=== PATIENT | male | born 1955 | race Caucasian/White ===

== ENCOUNTER → 2016-06-26 | Outpatient (CLI) | payer MEDICAID, OTHER ==
[2016-06-26 09:20] LABS: Basophils # (A) 0.1 k/uL (0-0.2); Basophils % (A) 1 %; CH 31.8; CHCM 34.2; Eosinophils # (A) 0.3 k/uL (0-0.7); Eosinophils % (A) 4 %; HCT 46.8 % (39.0-53.0); HDW 2.49; HGB 15.6 gm/dL (13.0-17.5); Luc # (Auto) 0.22; Luc % (Auto) 3; Lymphocytes # (A) 1.6 k/uL (1.0-4.8); Lymphocytes % (A) 24 %; MCH 31.1 pg (25.0-35.0); MCHC 33.3 g/dL (31.0-37.0); MCV 93.4 fL (80.0-100.0); Mean Platelet Volume 6.2; Monocytes # (A) 0.4 k/uL (0-1.0); Monocytes % (A) 6 %; Neutrophils # (A) 4.1 k/uL (1.3-7.7); Neutrophils % (A) 61 %; RBC 5.01 m/uL (4.30-5.90); RDW 12.2 % (11.5-15.5); WBC 6.6 k/uL (3.8-10.6); WBC (Perox) 6.97
[2016-06-26 13:00] LABS: ALT 49 U/L (21-72); AST 26 U/L (17-59); Alkaline Phosphatase 97 U/L (38-126); Anion Gap 11 mmol/L; Blood Urea Nitrogen 10 mg/dL (9-20); Calcium 9.8 mg/dL (8.4-10.2); Carbon Dioxide 30 mmol/L (22-30); Chloride 99 mmol/L (98-107); Cholesterol 209 mg/dL (<200); Glucose 115 mg/dL (74-99); HDL Cholesterol 40 mg/dL (40-60); Non-African American GFR(MDRD) >60 (>60 ml/min/1.73 sqM); Potassium 4.8 mmol/L (3.5-5.1); Sodium 140 mmol/L (137-145); Total Protein 7.9 g/dL (6.3-8.2); Triglycerides 419 mg/dL (<150)
[2016-06-26 13:25] LABS: Prostate Specific Antigen 0.65 ng/mL (0.00-4.00)
== END | disposition home or self-care (01) ==
LOC: LABWHC1 08:38
PROVIDERS: ATTEND Family Medicine
DX: Z00.01 Encounter for general adult medical examination with abnormal findings (principal); N40.0 Benign prostatic hyperplasia without lower urinary tract symptoms; N52.9 Male erectile dysfunction, unspecified; E78.2 Mixed hyperlipidemia; I10 Essential (primary) hypertension
CPT/HCPCS: 36415; 80053; 80061; 84153; 85025

== ENCOUNTER → 2016-12-12 | Outpatient (CLI) | payer MEDICAID, OTHER ==
[2016-12-12 10:15] LABS: ALT 39 U/L (21-72); AST 22 U/L (17-59); Alkaline Phosphatase 86 U/L (38-126); Anion Gap 10 mmol/L; Blood Urea Nitrogen 13 mg/dL (9-20); Calcium 9.8 mg/dL (8.4-10.2); Carbon Dioxide 29 mmol/L (22-30); Chloride 99 mmol/L (98-107); Cholesterol 189 mg/dL (<200); Glucose 107 mg/dL (74-99); HDL Cholesterol 42 mg/dL (40-60); Non-African American GFR(MDRD) >60 (>60 ml/min/1.73 sqM); Sodium 138 mmol/L (137-145); Total Protein 7.8 g/dL (6.3-8.2); Triglycerides 259 mg/dL (<150)
== END | disposition home or self-care (01) ==
LOC: LABWHC1 09:23
PROVIDERS: ATTEND Family Medicine
DX: E78.2 Mixed hyperlipidemia (principal); I10 Essential (primary) hypertension
CPT/HCPCS: 36415; 80053; 80061

== ENCOUNTER → 2016-12-18 | Outpatient (CLI) | payer MEDICAID, OTHER ==
--- NOTE | 2016-12-18 12:54 | P.STRESS ---
- Stress Test Note Stress Test Results/Findings: Exam Performed: stress test Exam Date: 12/18/16 Reason for Exam: Chest pain Height: 5 ft 11 in Weight: 95.254 kg Protocol: Rylan Stage: 3 Duration of Exercise: 10:02 Resting Heart Rate: 68 Resting Blood Pressure: 131/79 Maximum Achieved Heart Rate: 153 Maximum Achieved Blood Pressure: 175/79 85% PMHR: 133 100% PMHR: 157 METS: 11.7 Technologist Comment: Stress Test Results/Findings: Resting EKG shows a normal sinus rhythm with normal ND interval and QRS duration and normal ST-T waves. No ST segment depression suggestive ischemia is noted during exercise. Patient did not complain of any chest pain during the test. No dysrhythmias are noted. Final impression stress electrocardiogram is not suggestive ischemia. Patient did not complain of any anginal pain during the test. No dysrhythmias were noted.
--- NOTE | 2016-12-18 16:49 | EST ---
Stress Test Results/Findings: Exam Performed: stress test Exam Date: 12/18/16 Reason for Exam: Chest pain Height: 5 ft 11 in Weight: 95.254 kg Protocol: Rylan Stage: 3 Duration of Exercise: 10:02 Resting Heart Rate: 68 Resting Blood Pressure: 131/79 Maximum Achieved Heart Rate: 153 Maximum Achieved Blood Pressure: 175/79 85% PMHR: 133 100% PMHR: 157 METS: 11.7 Technologist Comment: Stress Test Results/Findings: Resting EKG shows a normal sinus rhythm with normal MD interval and QRS duration and normal ST-T waves. No ST segment depression suggestive ischemia is noted during exercise. Patient did not complain of any chest pain during the test. No dysrhythmias are noted. Final impression stress electrocardiogram is not suggestive ischemia. Patient did not complain of any anginal pain during the test. No dysrhythmias were noted. MTDD
== END | disposition home or self-care (01) ==
LOC: RADNMMAIN 10:49
PROVIDERS: ATTEND Family Medicine
DX: R07.9 Chest pain, unspecified (principal)
CPT/HCPCS: 93017

== ENCOUNTER → 2017-03-30 | Outpatient (CLI) | payer MEDICAID, OTHER ==
[2017-03-30 15:48] LABS: Basophils % (A) 1 %; CH 31.6; CHCM 33.6; Eosinophils % (A) 0 %; HCT 44.3 % (39.0-53.0); HDW 2.23; HGB 14.6 gm/dL (13.0-17.5); Luc # (Auto) 0.11; Luc % (Auto) 2; Lymphocytes # (A) 0.7 k/uL (1.0-4.8); Lymphocytes % (A) 11 %; MCHC 32.9 g/dL (31.0-37.0); MCV 94.4 fL (80.0-100.0); Mean Platelet Volume 7.1; Monocytes # (A) 0.6 k/uL (0-1.0); Monocytes % (A) 9 %; Neutrophils # (A) 4.9 k/uL (1.3-7.7); Neutrophils % (A) 78 %; RBC 4.69 m/uL (4.30-5.90); RDW 13.7 % (11.5-15.5); WBC 6.4 k/uL (3.8-10.6); WBC (Perox) 6.39
--- NOTE | 2017-03-30 15:51 | XR ---
EXAMINATION TYPE: XR chest 2V DATE OF EXAM: 03/30/2017 COMPARISON: 09/23/2011 TECHNIQUE: PA and lateral views submitted. HISTORY: Cough FINDINGS: The lungs are clear and there is no pneumothorax, pleural effusion, or focal pneumonia. Hypertrophi c and degenerative change of the spine. Scoliotic curvature noted. IMPRESSION: 1. No acute process.
[2017-03-30 16:03] LABS: ALT 49 U/L (21-72); AST 26 U/L (17-59); Alkaline Phosphatase 109 U/L (38-126); Anion Gap 11 mmol/L; Blood Urea Nitrogen 11 mg/dL (9-20); Calcium 9.5 mg/dL (8.4-10.2); Carbon Dioxide 26 mmol/L (22-30); Chloride 89 mmol/L (98-107); Glucose 137 mg/dL (74-99); Non-African American GFR(MDRD) >60 (>60 ml/min/1.73 sqM); Potassium 4.7 mmol/L (3.5-5.1); Sodium 126 mmol/L (137-145); Total Bilirubin 1.1 mg/dL (0.2-1.3); Total Protein 7.5 g/dL (6.3-8.2)
[2017-03-30 16:59] LABS: Appearance,Urine Clear (Clear); Bilirubin,Urine Negative (Negative); Glucose,Urine (UA) Negative (Negative); Ketones,Urine 1+ (Negative); Leukocyte Esterase,Urine Negative (Negative); Nitrite,Urine Negative (Negative); PH, Urine 6.5 (5.0-8.0); Protein,Urine Trace (Negative); UA Billing (MACRO vs. MICRO) CHEM; Urobilinogen,Urine <2.0 mg/dL (<2.0)
== END | disposition home or self-care (01) ==
LOC: RADXRMAIN 14:52
PROVIDERS: ATTEND Physician Assistant
DX: R05 Cough (principal); R68.83 Chills (without fever); R11.0 Nausea
CPT/HCPCS: 36415; 71020; 80053; 81003; 85025; 87086

== ENCOUNTER → 2017-04-01 | Outpatient (CLI) | payer OTHER, MEDICAID ==
[2017-04-01 14:28] LABS: ALT 52 U/L (21-72); AST 34 U/L (17-59); Alkaline Phosphatase 89 U/L (38-126); Anion Gap 11 mmol/L; Blood Urea Nitrogen 17 mg/dL (9-20); Calcium 8.8 mg/dL (8.4-10.2); Carbon Dioxide 23 mmol/L (22-30); Chloride 96 mmol/L (98-107); Glucose 91 mg/dL (74-99); Non-African American GFR(MDRD) >60 (>60 ml/min/1.73 sqM); Sodium 130 mmol/L (137-145); Total Bilirubin 0.9 mg/dL (0.2-1.3); Total Protein 7.5 g/dL (6.3-8.2)
== END | disposition home or self-care (01) ==
LOC: LABWHC1 13:26
PROVIDERS: ATTEND Physician Assistant
DX: E87.1 Hypo-osmolality and hyponatremia (principal)
CPT/HCPCS: 36415; 80053

== ENCOUNTER → 2017-06-25 | Outpatient (CLI) | payer OTHER, MEDICAID ==
[2017-06-25 11:06] LABS: Basophils # (A) 0.1 k/uL (0-0.2); Basophils % (A) 1 %; Eosinophils # (A) 0.2 k/uL (0-0.7); Eosinophils % (A) 4 %; HCT 45.2 % (39.0-53.0); HGB 15.4 gm/dL (13.0-17.5); Lymphocytes # (A) 1.6 k/uL (1.0-4.8); Lymphocytes % (A) 24 %; MCH 31.3 pg (25.0-35.0); MCV 92.2 fL (80.0-100.0); Mean Platelet Volume 6.5; Monocytes # (A) 0.4 k/uL (0-1.0); Monocytes % (A) 6 %; Neutrophils # (A) 4.1 k/uL (1.3-7.7); Neutrophils % (A) 62 %; Platelet Count 322 k/uL (150-450); RDW 12.2 % (11.5-15.5); WBC 6.7 k/uL (3.8-10.6)
[2017-06-25 11:16] LABS: ALT 40 U/L (21-72); AST 23 U/L (17-59); Albumin 4.6 g/dL (3.5-5.0); Alkaline Phosphatase 84 U/L (38-126); Anion Gap 9 mmol/L; Blood Urea Nitrogen 14 mg/dL (9-20); Calcium 9.7 mg/dL (8.4-10.2); Carbon Dioxide 31 mmol/L (22-30); Chloride 98 mmol/L (98-107); Cholesterol 190 mg/dL (<200); Glucose 116 mg/dL (74-99); HDL Cholesterol 45 mg/dL (40-60); LDL Cholesterol,Calculated 109 mg/dL (0-99); Potassium 4.8 mmol/L (3.5-5.1); Sodium 138 mmol/L (137-145); Total Bilirubin 0.7 mg/dL (0.2-1.3); Total Protein 7.6 g/dL (6.3-8.2); Triglycerides 181 mg/dL (<150)
[2017-06-25 11:41] LABS: PSA Annual Screen 0.69 ng/mL (0.00-4.00)
== END | disposition home or self-care (01) ==
LOC: LABWHC1 10:21
PROVIDERS: ATTEND Family Medicine
DX: Z00.01 Encounter for general adult medical examination with abnormal findings (principal); N40.0 Benign prostatic hyperplasia without lower urinary tract symptoms; E78.2 Mixed hyperlipidemia; I10 Essential (primary) hypertension
CPT/HCPCS: 80061; 80053; 85025; 36415; G0103

== ENCOUNTER 2017-07-02 09:25 | Day surgery (SDC) | payer OTHER, MEDICAID ==
[2017-06-30 11:58] VITALS: BMI 29.9
[~2017-07-02 09:25] MED LIST: LACTATED RINGERS 1,000 ML IV SCH; LIDOCAINE 1% 20 ML VIAL (10MG/ML) FOR IV START INTRADERMA PRN
[2017-07-02 10:05] VITALS: TEMP 97.8
[2017-07-02] MEDS ORDERED: GLYCOPYRROLATE 0.2 MG/ML 2 ML VIAL ONE (10:59)
[2017-07-02] MEDS ORDERED: PROPOFOL 10 MG/ML 20 ML VIAL IV ONE (10:59)
[2017-07-02] MEDS ORDERED: LIDOCAINE 1% INJ 10MG/ML (20 ML MDV) ONE (10:59)
[2017-07-02 11:35] VITALS: RESP 18
--- NOTE | 2017-07-02 11:42 | P.PCN ---
Date of Procedure: 07/02/17 Procedure(s) Performed: Procedure: Colonoscopy and polypectomy. Preoperative diagnosis: Screening for neoplasia, patient has history of polyps. Postoperative diagnosis: 1. Small right colon polyp snared but no large polyps or cancer. 2. Diverticulosis with no evidence of acute diverticulitis or strictures. Preparation: HalfLytely prep. Sedation: Was provided by anesthesia. Brief clinical history: The patient is a 61-year-old male who is scheduled for this evaluation for screening for neoplasia age being his risk factor as well as history of polyps. His last colonoscopy was in February 2012. The patient has no abdominal complaints, bleeding or anemia. Procedure: With the patient on his left lateral decubitus position and after informed consent and adequate sedation, the perianal area was inspected and it did not show any fissures or fistulas. There were no masses felt on digital rectal examination. The Olympus CFQ 160L video colonoscope was then inserted in the rectum in the usual fashion and advanced to the cecum. There were several diverticular orifices seen scattered along the length of the bowel wall including the right side but there was no evidence of acute diverticulitis or strictures. There was a small polyp in the proximal sigmoid which I snared and retrieved by suction but there were no large polyps or cancer. The mucosa appeared healthy. I retroflexed the endoscope in the rectum before the endoscope was withdrawn. The patient tolerated the procedure well. Plan: The patient was reassured. Discussed dietary measures. He will follow up with you as planned and I recommended repeat exam in 5 years.
[2017-07-02 11:50] VITALS: BP 120/80; PULSE 72
== END 2017-07-02 12:07 | disposition home or self-care (01) ==
LOC: ORWHC2ENDO 09:25
DX: Z12.11 Encounter for screening for malignant neoplasm of colon (principal); K63.5 Polyp of colon; Z86.010 Personal history of colon polyps; K57.30 Diverticulosis of large intestine without perforation or abscess without bleeding; I10 Essential (primary) hypertension; E78.5 Hyperlipidemia, unspecified; Z79.82 Long term (current) use of aspirin; Z79.899 Other long term (current) drug therapy
CPT/HCPCS: 88305; 45385; J2001; J2704

== ENCOUNTER → 2017-12-24 | Outpatient (CLI) | payer OTHER, MEDICAID ==
[2017-12-24 11:33] LABS: Anion Gap 6 mmol/L; Blood Urea Nitrogen 10 mg/dL (9-20); Calcium 9.7 mg/dL (8.4-10.2); Carbon Dioxide 30 mmol/L (22-30); Chloride 101 mmol/L (98-107); Glucose 109 mg/dL (74-99); Potassium 5.3 mmol/L (3.5-5.1); Sodium 137 mmol/L (137-145)
== END | disposition home or self-care (01) ==
LOC: LABWHC1 10:37
PROVIDERS: ATTEND Family Medicine
DX: I10 Essential (primary) hypertension (principal); R73.9 Hyperglycemia, unspecified
CPT/HCPCS: 36415; 80048

== ENCOUNTER → 2018-06-24 | Outpatient (CLI) | payer OTHER, MEDICAID ==
[2018-06-24 11:09] LABS: Basophils # (A) 0.1 k/uL (0-0.2); Basophils % (A) 1 %; Eosinophils # (A) 0.5 k/uL (0-0.7); Eosinophils % (A) 7 %; HCT 44.3 % (39.0-53.0); HGB 14.5 gm/dL (13.0-17.5); Lymphocytes # (A) 1.8 k/uL (1.0-4.8); Lymphocytes % (A) 26 %; MCH 30.2 pg (25.0-35.0); MCHC 32.8 g/dL (31.0-37.0); MCV 92.2 fL (80.0-100.0); Mean Platelet Volume 6.5; Monocytes # (A) 0.4 k/uL (0-1.0); Monocytes % (A) 6 %; Neutrophils # (A) 3.8 k/uL (1.3-7.7); Neutrophils % (A) 57 %; Platelet Count 304 k/uL (150-450); RBC 4.81 m/uL (4.30-5.90); RDW 12.6 % (11.5-15.5); WBC 6.7 k/uL (3.8-10.6)
[2018-06-24 16:37] LABS: Albumin 4.6 g/dL (3.80-4.90); Albumin/Globulin Ratio 2.09 (1.60-3.17); Anion Gap 8.1 mmol/L (4.00-12.00); Calcium 9.7 mg/dL (8.7-10.3); Carbon Dioxide 26.9 mmol/L (21.6-31.8); Globulin 2.2 g/dL (1.6-3.3); Potassium 4.7 mmol/L (3.5-5.5); Total Bilirubin 1.1 mg/dL (0.3-1.2); Total Protein 6.8 g/dL (6.2-8.2)
[2018-06-24 16:38] LABS: LDL Cholesterol,Calculated 86.8 mg/dL (0.0-131.0); VLDL Calculation 49.2 mg/dL (5.00-40.00)
[2018-06-24 18:38] LABS: Hemoglobin A1C 5.8 % (4.0-6.0)
== END | disposition home or self-care (01) ==
LOC: LABWHC1 10:01
PROVIDERS: ATTEND Family Medicine
DX: Z00.01 Encounter for general adult medical examination with abnormal findings (principal); I10 Essential (primary) hypertension; E78.2 Mixed hyperlipidemia; N40.0 Benign prostatic hyperplasia without lower urinary tract symptoms; R73.09 Other abnormal glucose
CPT/HCPCS: 80061; 80053; 85025; 83036; 36415; G0103

== ENCOUNTER → 2018-12-13 | Outpatient (CLI) | payer MEDICAID, MEDICARE ==
[2018-12-13 17:09] LABS: African American GFR (CKD) 91.1 (60.0-200.0); Albumin 4.8 g/dL (3.80-4.90); Albumin/Globulin Ratio 2.4 (1.60-3.17); Anion Gap 7.9 mmol/L (4.00-12.00); Calcium 9.8 mg/dL (8.7-10.3); Carbon Dioxide 28.1 mmol/L (21.6-31.8); Potassium 5.1 mmol/L (3.5-5.5); Total Protein 6.8 g/dL (6.2-8.2)
== END | disposition home or self-care (01) ==
LOC: LABWHC1 08:59
PROVIDERS: ATTEND Family Medicine
DX: A09 Infectious gastroenteritis and colitis, unspecified (principal)
CPT/HCPCS: 36415; 80053

== ENCOUNTER → 2018-12-31 | Outpatient (CLI) | payer MEDICAID ==
[2018-12-31 12:58] LABS: African American GFR (CKD) >90 (>60 ml/min/1.73 sqM); Blood Urea Nitrogen 14 mg/dL (9-20)
--- NOTE | 2018-12-31 15:43 | CT ---
EXAMINATION TYPE: CT abdomen pelvis w con DATE OF EXAM: 12/31/2018 COMPARISON: 10/09/2011 HISTORY: Hepatic Cysts CT DLP: 1385.9 mGycm Automated exposure control for dose reduction was used. TECHNIQUE: Helical acquisition of images was performed from the lung bases through the pelvis. CONTRAST: Performed with Oral Contrast and with IV Contrast, patient injected with 100 mL of Isovue 300. FINDINGS: LUNG BASES: Tiny left lower lobe left costophrenic 2 mm nodule. Otherwise, no significant abnormality is appreciated. LIVER/GB: There is redemonstration of multiple hypoattenuating lesions within the liver. Largest in t he left hepatic lobe is seen superiorly and measuring up to 1.3 cm with previous measurement of 1.2 c m. There are also multiple cysts within the right hepatic lobe. The largest cyst is seen in the poste rior portion and demonstrates multiple lobulations and internal linear hyperattenuation likely relate d to internal septations. The size of this lesion measures 3.1 x 3.9 cm with previous measurement of 2.3 cm. There is also an additional similar appearing lesion in the gallbladder fossa posteriorly bernard suring 2.2 cm with previous measurement of 1.2 cm. Gallbladder appears normal. No intrahepatic or ext rahepatic biliary dilatation. PANCREAS: No significant abnormality is seen. SPLEEN: No significant abnormality is seen. ADRENALS: No significant abnormality is seen. KIDNEYS: No significant abnormality is seen. FREE AIR: No free air is visualized. RETROPERITONEAL ADENOPATHY: None visualized REPRODUCTIVE ORGANS: No significant abnormality is seen URINARY BLADDER: No significant abnormality is seen. PELVIC ADENOPATHY: None visualized. OSSEOUS STRUCTURES: Disc space narrowing and vacuum disc phenomenon with endplate sclerosis at L5-S1 . BOWEL: Sigmoid and descending colon diverticulosis without diverticulitis. OTHER: Left scrotal hydrocele. IMPRESSION: INCREASING SIZE OF MULTIPLE CYSTIC LIVER LESIONS WITH AREAS OF INTERNAL COMPLEXITY. LARGEST LESION IS SEEN IN THE RIGHT HEPATIC LOBE POSTERIORLY MEASURING UP TO 4.0 CM WITH PREVIOUS MEASUREMENT OF 2.3 C M IN 2011. FINDINGS ARE FAVORED TO REPRESENT COMPLEX CYSTS, BUT GIVEN THE INTERVAL INCREASE IN SIZE, CYSTIC NEOPLASTIC PROCESS REMAINS IN THE DIFFERENTIAL. FURTHER EVALUATION MAY BE OBTAINED WITH ABDOMI NAL ULTRASOUND OR MRI LIVER PROTOCOL TO ASSESS FOR INTERNAL ENHANCEMENT.
== END | disposition home or self-care (01) ==
LOC: RADCTMAIN 12:13
PROVIDERS: ATTEND Family Medicine
DX: Q44.6 Cystic disease of liver (principal); K76.89 Other specified diseases of liver
CPT/HCPCS: 82565; 84520; 74177; 36415; Q9967

== ENCOUNTER → 2019-01-06 | Outpatient (CLI) | payer MEDICAID ==
--- NOTE | 2019-01-06 12:18 | ECHOF ---
Referral Reason:R01.1 Cardiac murmur MEASUREMENTS -------- HEIGHT: 188.0 cm WEIGHT: 98.9 kg BP: RVIDd: 2.8 cm (< 3.3) IVSd: 1.1 cm (0.6 - 1.1) LVIDd: 4.4 cm (3.9 - 5.3) LVPWd: 1.4 cm (0.6 - 1.1) IVSs: 1.8 cm LVIDs: 3.6 cm LVPWs: 1.2 cm LA Diam: 3.8 cm (2.7 - 3.8) LAESV Index (A-L): 23.61 ml/m Ao Diam: 4.1 cm (2.0 - 3.7) AV Cusp: 2.2 cm (1.5 - 2.6) LA Diam: 3.6 cm (2.7 - 3.8) MV EXCURSION: 14.577 mm (> 18.000) MV EF SLOPE: 41 mm/s (70 - 150) EPSS: 1.2 cm MV E Rafael: 0.64 m/s MV DecT: 242 ms MV A Rafael: 0.93 m/s MV E/A Ratio: 0.68 AV maxP.81 mmHg AV meanP.53 mmHg RAP: 5.00 mmHg RVSP: 15.47 mmHg FINDINGS -------- Sinus rhythm. This was a technically good study. The left ventricular size is normal. There is mild concentric left ventricular hypertrophy. Overa ll left ventricular systolic function is normal with, an EF between 55 - 60 %. The right ventricle is normal in size. The left atrial size is normal. The right atrial size is normal. There is mild aortic stenosis present. Peak/mean gradient across the Aortic Valve is 15.81mmHg / 8. 53mmHg. Mild mitral annular calcification present. Mild mitral regurgitation is present. Mild tricuspid regurgitation present. There is no evidence of pulmonary hypertension. The right v entricular systolic pressure, as measured by Doppler, is 15.47mmHg. There is no pulmonic regurgitation present. The aortic root size is normal. There is no pericardial effusion. CONCLUSIONS -------- 1. Sinus rhythm. 2. This was a technically good study. 3. The left ventricular size is normal. 4. There is mild concentric left ventricular hypertrophy. 5. Overall left ventricular systolic function is normal with, an EF between 55 - 60 %. 6. The right ventricle is normal in size. 7. The left atrial size is normal. 8. The right atrial size is normal. 9. There is mild aortic stenosis present. 10. Peak/mean gradient across the Aortic Valve is 15.81mmHg / 8.53mmHg. 11. Mild mitral annular calcification present. 12. Mild mitral regurgitation is present. 13. Mild tricuspid regurgitation present. 14. There is no evidence of pulmonary hypertension. 15. The right ventricular systolic pressure, as measured by Doppler, is 15.47mmHg. 16. There is no pulmonic regurgitation present. 17. The aortic root size is normal. 18. There is no pericardial effusion. SPECIAL EDUCATION DIRECTOR: Jeny Mccormick RDCS
== END ==
LOC: RADECHMAIN 11:29
PROVIDERS: ATTEND Family Medicine
DX: I08.1 Rheumatic disorders of both mitral and tricuspid valves (principal)
CPT/HCPCS: 93306

== ENCOUNTER → 2019-02-07 | Outpatient (CLI) | payer MEDICAID ==
--- NOTE | 2019-02-07 13:20 | MR ---
MR liver with and without contrast HISTORY: Cystic disease of liver, abnormal CT Multiplanar multisequence and postcontrast images through the liver 5 10 cc Gadavist IV Correlation to CT 12/31/2018 The foci seen within the liver showing low attenuation show corresponding T2 hyperintensity, T1 low i ntensity. The liver is enlarged. No significant signal drop on out of phase imaging. There is no abno rmal enhancement following contrast administration. Some internal septations are noted as described o n prior report. The pancreas as visualized is unremarkable. Adrenal glands, gallbladder, spleen are normal. May be a small hiatal hernia present. The kidneys show cortical cysts bilaterally, the largest at the lower po le the left kidney measures approximately 17 mm. There is no retroperitoneal adenopathy. No evident ascites. Lung bases show no effusion. Aorta shows normal caliber. Inferior vena cava normal as seen. IMPRESSION: Nonaggressive appearance of the cystic foci within the liver, cortical cysts within the k idneys.
== END | disposition home or self-care (01) ==
LOC: RADMRIMAIN 09:02
PROVIDERS: ATTEND Family Medicine
DX: Q44.6 Cystic disease of liver (principal)
CPT/HCPCS: 74183; A9585

== ENCOUNTER → 2019-07-15 | Outpatient (CLI) | payer MEDICAID ==
[2019-07-15 10:38] LABS: Basophils # (A) 0.1 k/uL (0-0.2); Basophils % (A) 1 %; Eosinophils # (A) 0.2 k/uL (0-0.7); Eosinophils % (A) 3 %; HCT 46.8 % (39.0-53.0); HGB 15.7 gm/dL (13.0-17.5); Lymphocytes # (A) 1.6 k/uL (1.0-4.8); Lymphocytes % (A) 26 %; MCH 31.1 pg (25.0-35.0); MCHC 33.5 g/dL (31.0-37.0); MCV 92.7 fL (80.0-100.0); Monocytes # (A) 0.4 k/uL (0-1.0); Monocytes % (A) 6 %; Neutrophils # (A) 3.7 k/uL (1.3-7.7); Neutrophils % (A) 61 %; Platelet Count 316 k/uL (150-450); RBC 5.05 m/uL (4.30-5.90); WBC 6.1 k/uL (3.8-10.6)
[2019-07-15 16:02] LABS: African American GFR (CKD) 103.5 (60.0-200.0); Albumin 4.7 g/dL (3.80-4.90); Albumin/Globulin Ratio 2.14 (1.60-3.17); Anion Gap 7.6 mmol/L (4.00-12.00); BUN/Creat Ratio 15.56 Ratio (12.00-20.00); Calcium 9.6 mg/dL (8.7-10.3); Carbon Dioxide 28.4 mmol/L (21.6-31.8); Chol/HDL Ratio 3.91; Globulin 2.2 g/dL (1.6-3.3); LDL Cholesterol,Calculated 106.8 mg/dL (0.0-131.0); Non-African American GFR(CKD) 89.3 (60.0-200.0); Potassium 4.8 mmol/L (3.5-5.5); Total Bilirubin 1.3 mg/dL (0.2-1.2); Total Protein 6.9 g/dL (6.2-8.2); VLDL Calculation 30.2 mg/dL (5.00-40.00)
== END | disposition home or self-care (01) ==
LOC: LABWHC1 09:26
PROVIDERS: ATTEND Family Medicine
DX: Z00.01 Encounter for general adult medical examination with abnormal findings (principal); Z12.5 Encounter for screening for malignant neoplasm of prostate; I10 Essential (primary) hypertension; E78.2 Mixed hyperlipidemia; N40.0 Benign prostatic hyperplasia without lower urinary tract symptoms
CPT/HCPCS: 36415; 80053; 80061; 84153; 85025

== ENCOUNTER → 2020-01-16 | Outpatient (CLI) | payer MEDICAID ==
[2020-01-16 18:15] LABS: African American GFR (CKD) 102.8 (60.0-200.0); Anion Gap 7.4 mmol/L (4.00-12.00); BUN/Creat Ratio 18.89 Ratio (12.00-20.00); Calcium 9.6 mg/dL (8.7-10.3); Carbon Dioxide 28.6 mmol/L (21.6-31.8); Non-African American GFR(CKD) 88.7 (60.0-200.0); Potassium 4.9 mmol/L (3.5-5.5)
[2020-01-16 20:36] LABS: Hemoglobin A1C 5.6 % (4.0-6.0)
== END | disposition home or self-care (01) ==
LOC: LABWHC1 08:37
PROVIDERS: ATTEND Family Medicine
DX: I10 Essential (primary) hypertension (principal); E78.2 Mixed hyperlipidemia; R73.09 Other abnormal glucose
CPT/HCPCS: 36415; 80048; 83036

== ENCOUNTER → 2020-07-02 | Outpatient (CLI) | payer MEDICAID, MEDICARE ==
[2020-07-02 21:58] LABS: Basophils # (A) 0.06 X 10*3/uL (0.00-0.10); Basophils % (A) 0.9 %; Eosinophils # (A) 0.17 X 10*3/uL (0.04-0.35); Eosinophils % (A) 2.6 %; HCT 44.3 % (39.6-50.0); HGB 14.8 g/dL (13.0-17.0); Lymphocytes # (A) 1.98 X 10*3/uL (0.90-5.00); Lymphocytes % (A) 30.7 %; MCH 31.4 pg (27.0-32.0); MCHC 33.4 g/dL (32.0-37.0); MCV 93.9 fL (80.0-97.0); Mean Platelet Volume 9.8 fL (9.5-12.2); Monocytes # (A) 0.58 X 10*3/uL (0.20-1.00); Neutrophils # (A) 3.61 X 10*3/uL (1.80-7.70); Neutrophils % (A) 56.2 %; Platelet Count 317 X 10*3/uL (140-440); RBC 4.72 X 10*6/uL (4.40-5.60); RDW 12.1 % (11.5-14.5); WBC 6.44 X 10*3/uL (4.50-10.00)
[2020-07-03 00:53] LABS: African American GFR (CKD) 107.9 (60.0-200.0); Albumin/Globulin Ratio 2.63 (1.60-3.17); Anion Gap 7.8 mmol/L (4.00-12.00); Calcium 9.7 mg/dL (8.7-10.3); Carbon Dioxide 29.2 mmol/L (21.6-31.8); Chol/HDL Ratio 3.98; Globulin 1.9 g/dL (1.6-3.3); LDL Cholesterol,Calculated 94.8 mg/dL (0.0-131.0); Non-African American GFR(CKD) 93.1 (60.0-200.0); PSA Annual Screen 0.6 ng/mL (0.0-4.0); Potassium 4.8 mmol/L (3.5-5.5); Total Protein 6.9 g/dL (6.2-8.2); VLDL Calculation 30.2 mg/dL (5.00-40.00)
== END | disposition home or self-care (01) ==
LOC: LABWHC1 10:56
PROVIDERS: ATTEND Family Medicine
DX: Z00.01 Encounter for general adult medical examination with abnormal findings (principal); N40.0 Benign prostatic hyperplasia without lower urinary tract symptoms; Z12.5 Encounter for screening for malignant neoplasm of prostate; I10 Essential (primary) hypertension; E78.2 Mixed hyperlipidemia
CPT/HCPCS: 80061; 80053; 85025; 36415; G0103

== ENCOUNTER 2020-07-30 09:59 | Day surgery (SDC) | payer MEDICAID, MEDICARE ==
[2020-07-25 15:53] VITALS: BMI 30.8
[~2020-07-30 09:59] MED LIST changes: -LIDOCAINE 1% 20 ML VIAL (10MG/ML) FOR IV START INTRADERMA PRN
[2020-07-30 10:47] VITALS: TEMP 97
[2020-07-30] MEDS ORDERED: LACTATED RINGERS 1,000 ML IV ONE (11:00)
[2020-07-30] MEDS ORDERED: LIDOCAINE 1% (10MG/ML) FOR IV START INTRADERMA ONE (11:01)
[2020-07-30] MEDS ORDERED: PROPOFOL 10 MG/ML 20 ML VIAL IV ONE (11:52)
--- NOTE | 2020-07-30 12:33 | P.PCN ---
Date of Procedure: 07/30/20 Description of Procedure: BRIEF HISTORY: Patient is a 65-year-old male presenting for outpatient colonoscopy for history of colon polyps. Last colonoscopy 2018 and significant for polypectomy. He denies any change in bowel habits or blood per rectum. No family history of colon cancer. PROCEDURE PERFORMED: Colonoscopy with polypectomy. PREOPERATIVE DIAGNOSIS: Personal history of colon polyps, last colonoscopy 2018. ESTIMATED BLOOD LOSS: Minimal. IV sedation per Anesthesia. PROCEDURE: After informed consent was obtained, the patient, was brought into the endoscopy unit. IV sedation was administered by Anesthesia under continuous monitoring. Digital rectal examination was normal. Initially the Olympus CF-190 flexible video colonoscope was then inserted in the rectum, gradually advanced into the cecum without any difficulty. Careful examination was performed as the scope was gradually being withdrawn. Ileocecal valve and the appendiceal orifice were visualized and appeared normal. Prep was fair to good with some liquid stool and stool balls noted throughout the colon which were lavaged. Mucosa of the cecum, ascending colon, transverse colon, descending colon, sigmoid colon, and rectum appeared normal, and significant for multiple small enlarged marked diverticula in the left colon consistent with moderate diverticulosis. Diminutive 2 mm hepatic flexure polyp removed with cold forcep polypectomy. Retroflexion was performed in the rectum and no lesions were seen. The patient tolerated the procedure well. IMPRESSION: Diminutive hepatic flexure polyp removed with cold forcep polypectomy. Moderate left colonic diverticulosis. RECOMMENDATIONS: Findings of this examination were discussed with the patient and his family. Okay to resume diet. Okay to resume medications. Await pathology from polypectomy. Recommend repeat colonoscopy in 5 years for colon polyps.
[2020-07-30 13:07] VITALS: BP 122/77; PULSE 54; RESP 20
== END 2020-07-30 13:33 | disposition home or self-care (01) ==
LOC: ORWHC2ENDO 09:59
PROVIDERS: ATTEND Internal Medicine
DX: Z12.11 Encounter for screening for malignant neoplasm of colon (principal); D12.3 Benign neoplasm of transverse colon; K57.30 Diverticulosis of large intestine without perforation or abscess without bleeding; I10 Essential (primary) hypertension; E78.5 Hyperlipidemia, unspecified; Z86.010 Personal history of colon polyps; Z79.899 Other long term (current) drug therapy; Z98.890 Other specified postprocedural states
CPT/HCPCS: 88305; 45380; J2704

== ENCOUNTER → 2021-01-01 | Outpatient (CLI) | payer MEDICARE ==
[2021-01-01 14:46] LABS: Basophils # (A) 0.07 X 10*3/uL (0.00-0.10); Basophils % (A) 0.9 %; Eosinophils # (A) 0.24 X 10*3/uL (0.04-0.35); Eosinophils % (A) 3.1 %; HCT 46.1 % (39.6-50.0); HGB 15.1 g/dL (13.0-17.0); Lymphocytes # (A) 2.09 X 10*3/uL (0.90-5.00); Lymphocytes % (A) 27.4 %; MCH 31.3 pg (27.0-32.0); MCHC 32.8 g/dL (32.0-37.0); MCV 95.4 fL (80.0-97.0); Mean Platelet Volume 9.8 fL (9.5-12.2); Monocytes # (A) 0.55 X 10*3/uL (0.20-1.00); Monocytes % (A) 7.2 %; Neutrophils # (A) 4.65 X 10*3/uL (1.80-7.70); Neutrophils % (A) 60.9 %; Platelet Count 308 X 10*3/uL (140-440); RBC 4.83 X 10*6/uL (4.40-5.60); RDW 11.9 % (11.5-14.5); WBC 7.64 X 10*3/uL (4.50-10.00)
[2021-01-01 15:53] LABS: African American GFR (CKD) 102.1 (60.0-200.0); Albumin 4.7 g/dL (3.80-4.90); Albumin/Globulin Ratio 1.81 (1.60-3.17); Anion Gap 6.3 mmol/L (4.00-12.00); BUN/Creat Ratio 15.56 Ratio (12.00-20.00); Calcium 9.3 mg/dL (8.7-10.3); Carbon Dioxide 30.7 mmol/L (21.6-31.8); Chol/HDL Ratio 4.43; Globulin 2.6 g/dL (1.6-3.3); LDL Cholesterol,Calculated 79.8 mg/dL (0.0-131.0); Non-African American GFR(CKD) 88.1 (60.0-200.0); Potassium 4.5 mmol/L (3.5-5.5); Total Bilirubin 0.9 mg/dL (0.3-1.2); Total Protein 7.3 g/dL (6.2-8.2); VLDL Calculation 47.2 mg/dL (5.00-40.00)
== END | disposition home or self-care (01) ==
LOC: LABWHC1 09:22
PROVIDERS: ATTEND Family Medicine
DX: Z00.01 Encounter for general adult medical examination with abnormal findings (principal); N40.0 Benign prostatic hyperplasia without lower urinary tract symptoms; E78.2 Mixed hyperlipidemia; I10 Essential (primary) hypertension
CPT/HCPCS: 36415; 80053; 80061; 84153; 85025

== ENCOUNTER → 2021-07-05 | Outpatient (CLI) | payer MEDICARE, BC ==
[2021-07-05 17:33] LABS: Basophils # (A) 0.04 X 10*3/uL (0.00-0.10); Basophils % (A) 0.5 %; Eosinophils # (A) 0.22 X 10*3/uL (0.04-0.35); Eosinophils % (A) 2.9 %; HCT 45.6 % (39.6-50.0); HGB 15.1 g/dL (13.0-17.0); Immature Grans, Automated 0.7 %; Lymphocytes # (A) 2.01 X 10*3/uL (0.90-5.00); Lymphocytes % (A) 26.5 %; MCHC 33.1 g/dL (32.0-37.0); MCV 93.6 fL (80.0-97.0); Mean Platelet Volume 9.7 fL (9.5-12.2); Monocytes # (A) 0.56 X 10*3/uL (0.20-1.00); Monocytes % (A) 7.4 %; NRBC Per 100 WBC 0 /100 WBCS (0.0-0.0); Neutrophils # (A) 4.71 X 10*3/uL (1.80-7.70); Platelet Count 322 X 10*3/uL (140-440); RBC 4.87 X 10*6/uL (4.40-5.60); RDW 11.9 % (11.5-14.5); WBC 7.59 X 10*3/uL (4.50-10.00)
[2021-07-05 17:48] LABS: ALT 27 U/L (10-49); AST 19 U/L (14-35); African American GFR (CKD) 102.1 (60.0-200.0); Albumin 4.8 g/dL (3.8-4.9); Albumin/Globulin Ratio 1.85 (1.60-3.17); Alkaline Phosphatase 87 U/L (41-126); BUN/Creat Ratio 13.22 Ratio (12.00-20.00); Blood Urea Nitrogen 11.9 mg/dL (9.0-27.0); Calcium 9.5 mg/dL (8.7-10.3); Carbon Dioxide 25.6 mmol/L (20.0-27.5); Chloride 96 mmol/L (96-109); Chol/HDL Ratio 4.48 Ratio; Globulin 2.6 g/dL (1.6-3.3); Glucose 110 mg/dL (70-110); LDL Cholesterol,Calculated 89.9 mg/dL (0.0-131.0); Non-African American GFR(CKD) 88.1 (60.0-200.0); Potassium 4.9 mmol/L (3.5-5.5); Sodium 132 mmol/L (135-145); Total Protein 7.4 g/dL (6.2-8.2)
== END | disposition home or self-care (01) ==
LOC: LABWHC1 08:56
PROVIDERS: ATTEND Family Medicine
DX: Z00.01 Encounter for general adult medical examination with abnormal findings (principal); I10 Essential (primary) hypertension; E78.2 Mixed hyperlipidemia; N40.0 Benign prostatic hyperplasia without lower urinary tract symptoms; R73.09 Other abnormal glucose
CPT/HCPCS: 36415; 80053; 80061; 83036; 84153; 85025

== ENCOUNTER → 2021-12-24 | Outpatient (CLI) | payer MEDICARE, BC ==
[2021-12-24 14:40] LABS: Basophils # (A) 0.04 X 10*3/uL (0.00-0.10); Basophils % (A) 0.7 %; Eosinophils # (A) 0.15 X 10*3/uL (0.04-0.35); Eosinophils % (A) 2.5 %; HCT 44.4 % (39.6-50.0); Immature Grans, Automated 0.5 %; Lymphocytes # (A) 1.63 X 10*3/uL (0.90-5.00); Lymphocytes % (A) 27.1 %; MCH 31.6 pg (27.0-32.0); MCHC 33.8 g/dL (32.0-37.0); MCV 93.5 fL (80.0-97.0); Mean Platelet Volume 9.6 fL (9.5-12.2); Monocytes # (A) 0.49 X 10*3/uL (0.20-1.00); Monocytes % (A) 8.2 %; NRBC Per 100 WBC 0 /100 WBCS (0.0-0.0); Neutrophils # (A) 3.67 X 10*3/uL (1.80-7.70); Platelet Count 294 X 10*3/uL (140-440); RBC 4.75 X 10*6/uL (4.40-5.60); WBC 6.01 X 10*3/uL (4.50-10.00)
[2021-12-24 15:00] LABS: ALT 30 U/L (10-49); AST 24 U/L (14-35); African American GFR (CKD) 101.4 (60.0-200.0); Albumin 4.8 g/dL (3.8-4.9); Albumin/Globulin Ratio 1.78 (1.60-3.17); Alkaline Phosphatase 101 U/L (41-126); BUN/Creat Ratio 14.44 Ratio (12.00-20.00); Calcium 9.4 mg/dL (8.7-10.3); Carbon Dioxide 25.6 mmol/L (20.0-27.5); Chloride 99 mmol/L (96-109); Chol/HDL Ratio 4.38 Ratio; Globulin 2.7 g/dL (1.6-3.3); Glucose 113 mg/dL (70-110); LDL Cholesterol,Calculated 88.1 mg/dL (0.0-131.0); Non-African American GFR(CKD) 87.5 (60.0-200.0); Sodium 136 mmol/L (135-145); Total Protein 7.5 g/dL (6.2-8.2)
== END | disposition home or self-care (01) ==
LOC: LABWHC1 10:23
PROVIDERS: ATTEND Family Medicine
DX: Z00.01 Encounter for general adult medical examination with abnormal findings (principal); I10 Essential (primary) hypertension; E78.2 Mixed hyperlipidemia; N40.0 Benign prostatic hyperplasia without lower urinary tract symptoms; Z12.5 Encounter for screening for malignant neoplasm of prostate; R73.09 Other abnormal glucose
CPT/HCPCS: 80061; 80053; 85025; 83036; 36415; G0103

== ENCOUNTER → 2022-12-25 | Outpatient (CLI) | payer MEDICARE, BC ==
[2022-12-25 17:12] LABS: ALT 29 U/L (10-49); AST 21 U/L (14-35); Albumin 4.8 d/dL (3.8-4.9); Albumin/Globulin Ratio 1.92 Ratio (1.60-3.17); Alkaline Phosphatase 92 U/L (41-126); BUN/Creat Ratio 16.44 Ratio (12.00-20.00); Blood Urea Nitrogen 14.8 mg/dL (9.0-27.0); Calcium 9.5 mg/dL (8.7-10.3); Carbon Dioxide 28.1 mmol/L (21.6-31.8); Chloride 99 mmol/L (96-109); Globulin 2.5 d/dL (1.6-3.3); Glucose 110 mg/dL (70-110); LDL Cholesterol,Calculated 99.1 mg/dL (0.0-131.0); Potassium 4.5 mmol/L (3.5-5.5); Sodium 135 mmol/L (135-145); Total Bilirubin 0.8 mg/dL (0.3-1.2); Total Protein 7.3 d/dL (6.2-8.2)
== END | disposition home or self-care (01) ==
LOC: LABWHC1 09:07
PROVIDERS: ATTEND Family Medicine
DX: I10 Essential (primary) hypertension (principal); E78.2 Mixed hyperlipidemia; Q44.6 Cystic disease of liver
CPT/HCPCS: 36415; 80053; 80061

== ENCOUNTER → 2023-07-02 | Outpatient (CLI) | payer MEDICARE, BC ==
[2023-07-02 15:29] LABS: HCT 46.1 % (39.6-50.0); HGB 15.7 g/dL (13.0-17.0); MCH 31.4 pg (27.0-32.0); MCHC 34.1 g/dL (32.0-37.0); MCV 92.2 FL (80.0-97.0); Mean Platelet Volume 9.7 FL (9.5-12.2); NRBC Per 100 WBC 0 X 10*3/uL (0.00-0.01); Platelet Count 321 X 10*3/uL (140-440); RDW 12.2 % (11.5-14.5); WBC 6.36 X 10*3/uL (4.50-10.00)
[2023-07-02 15:31] LABS: Appearance,Urine Clear (Clear); Bilirubin,Urine Negative (Negative); Blood,Urine Negative (Negative); Color,Urine Yellow (Yellow); Ketones,Urine Negative (Negative); Nitrite,Urine Negative (Negative); Specific Gravity,Urine 1.008 (1.001-1.030); Urobilinogen,Urine 0.2 E.U./DL
[2023-07-02 15:38] LABS: Bacteria,Urine None Seen (None Seen)
[2023-07-02 15:59] LABS: BUN/Creat Ratio 9.11 Ratio (12.00-20.00); Blood Urea Nitrogen 8.2 mg/dL (9.0-27.0); Chloride 93 mmol/L (96-109); Chol/HDL Ratio 3.82 Ratio; Glucose 103 mg/dL (70-110); LDL Cholesterol,Calculated 100.7 mg/dL (0.0-131.0); Potassium 4.3 mmol/L (3.5-5.5); Sodium 130 mmol/L (135-145)
[2023-07-02 16:00] LABS: ALT 33 U/L (10-49); AST 18 U/L (14-35); Albumin/Globulin Ratio 1.85 Ratio (1.60-3.17); Alkaline Phosphatase 107 U/L (41-126); Calcium 9.9 mg/dL (8.7-10.3); Carbon Dioxide 25.2 mmol/L (21.6-31.8); Globulin 2.7 g/dL (1.6-3.3); Prostate Specific Antigen 0.77 ng/mL (0.000-4.500); Total Protein 7.7 g/dL (6.2-8.2)
== END | disposition home or self-care (01) ==
LOC: LABWHC1 10:07
PROVIDERS: ATTEND Family Medicine
DX: I10 Essential (primary) hypertension (principal); E78.5 Hyperlipidemia, unspecified; E66.3 Overweight; N40.0 Benign prostatic hyperplasia without lower urinary tract symptoms; R73.03 Prediabetes
CPT/HCPCS: 36415; 80053; 80061; 81001; 82306; 83036; 84153; 84443; 85027

== ENCOUNTER → 2023-07-09 | Outpatient (CLI) | payer MEDICARE, BC ==
[2023-07-09 22:11] LABS: BUN/Creat Ratio 14.11 Ratio (12.00-20.00); Blood Urea Nitrogen 12.7 mg/dL (9.0-27.0); Calcium 9.5 mg/dL (8.7-10.3); Carbon Dioxide 24.7 mmol/L (21.6-31.8); Chloride 95 mmol/L (96-109); Glucose 113 mg/dL (70-110); Sodium 133 mmol/L (135-145)
== END | disposition home or self-care (01) ==
LOC: LABWHC1 14:10
PROVIDERS: ATTEND Family Medicine
DX: E87.1 Hypo-osmolality and hyponatremia (principal)
CPT/HCPCS: 36415; 80048; 83930

== ENCOUNTER → 2024-02-24 | Outpatient (CLI) | payer MEDICARE, BC ==
--- NOTE | 2024-02-24 11:20 | US ---
EXAMINATION TYPE: US liver DATE OF EXAM: 02/24/2024 COMPARISON: NONE CLINICAL INDICATION: Male, 68 years old with history of R16.0 HEPATOMEGALY; liver cysts follow up to previous TECHNIQUE: Grayscale and color Doppler imaging of the right upper quadrant was performed. FINDINGS: EXAM MEASUREMENTS: Liver Length: 17.6 cm Gallbladder Wall: .3 cm CBD: .4 cm Right Kidney: 11.2 x 5.2 x 5.5 cm EQUIPMENT PLANNER NOTES: Pancreas: Obscured by bowel gas Liver: Cystic areas seen largest 4.8 x 3.7 x 5.6 cm. Gallbladder: No stones seen Evidence for sonographic Phan's sign: No CBD: wnl Right Kidney: wnl IMPRESSION: 1. Mild hepatomegaly. Multiple hepatic cysts with the largest measuring 4.8 x 5.6 cm. [facility], Workstation: [facility], 02/24/2024 11:18 AM
== END | disposition home or self-care (01) ==
LOC: RADUSWWP 07:54
PROVIDERS: ATTEND Family Medicine
CPT/HCPCS: 76705

== ENCOUNTER → 2024-03-19 | Outpatient (CLI) | payer MEDICARE, BC ==
--- NOTE | 2024-03-20 07:26 | MR ---
EXAMINATION TYPE: MR liver wo/w con DATE OF EXAM: 03/19/2024 3:29 PM COMPARISON: 02/07/2019 CLINICAL INDICATION: Male, 68 years old with history of K76.89 OTHER DISESES OF LIVER; PHH, F/U compr ession to prior MRI- cysts. TECHNIQUE: Multiplanar multi-sequence imaging was performed without contrast. Post contrast imaging was performed. Post IV contrast subtraction images were also submitted for review. IV Contrast: 9 cc Gadobutrol FINDINGS: LOWER CHEST: There is mildly enlarged for size. ABDOMEN Liver: No evidence for hepatic steatosis or cirrhosis. Several simple appearing high T2 signal hepati c cysts some with thin septations. Gallbladder and Bile ducts: No evidence for ductal dilation, or biliary stricture or evidence of chol edocholithiasis. The gallbladder is within normal limits. Pancreas: No ductal dilation. No evidence for solid mass. Spleen: Normal for size. Small splenule is present. Adrenal glands: Unremarkable. Kidneys: No evidence for obstructive uropathy. No suspicious renal masses. Stomach and Bowel: No evidence for bowel wall thickening or evidence for obstruction. Scattered colon ic diverticula present. Retroperitoneum/Peritoneum: No evidence of pneumoperitoneum or free fluid. Vasculature: No aortic aneurysm. Musculoskeletal: The osseous structures appear intact. Lymph Nodes: No gross evidence for lymphadenopathy. Abdominal wall: Unremarkable. IMPRESSION: 1. Scattered simple an mildly complex cystic hepatic cysts. No solid hepatic neoplasm. 2. Left renal cortical simple appearing cysts. No evidence for solid renal neoplasm. 3. Colonic diverticulosis. 4. Small hiatal hernia. 5. Mild cardiomegaly. 6. [facility], , 03/20/2024 7:24 AM
== END | disposition home or self-care (01) ==
LOC: RADMRIMAIN 13:41
PROVIDERS: ATTEND Internal Medicine Gastroenterology
DX: Q44.6 Cystic disease of liver (principal); K76.89 Other specified diseases of liver; K57.30 Diverticulosis of large intestine without perforation or abscess without bleeding; K44.9 Diaphragmatic hernia without obstruction or gangrene; I51.7 Cardiomegaly
CPT/HCPCS: 74183; A9585

== ENCOUNTER → 2024-04-13 | Outpatient (CLI) | payer MEDICARE, BC ==
[2024-04-13 15:55] LABS: Basophils # (A) 0.07 X 10*3/uL (0.00-0.10); Basophils % (A) 0.9 %; Eosinophils # (A) 0.27 X 10*3/uL (0.04-0.35); Eosinophils % (A) 3.3 %; HCT 44.9 % (39.6-50.0); HGB 15.6 g/dL (13.0-17.0); Lymphocytes # (A) 1.47 X 10*3/uL (0.90-5.00); Lymphocytes % (A) 18.2 %; MCH 31.5 pg (27.0-32.0); MCHC 34.7 g/dL (32.0-37.0); MCV 90.7 FL (80.0-97.0); Mean Platelet Volume 9.4 FL (9.5-12.2); Monocytes # (A) 0.81 X 10*3/uL (0.20-1.00); NRBC Per 100 WBC 0 X 10*3/uL (0.00-0.01); Neutrophils % (A) 66.9 %; Platelet Count 317 X 10*3/uL (140-440); RBC 4.95 X 10*6/uL (4.40-5.60); WBC 8.08 X 10*3/uL (4.50-10.00)
[2024-04-13 16:16] LABS: Erythrocyte Sedimentation Rate 8 mm/Hr (0-20)
== END | disposition home or self-care (01) ==
LOC: LABWHC1 10:39
PROVIDERS: ATTEND Optometrist
DX: M31.6 Other giant cell arteritis (principal)
CPT/HCPCS: 36415; 85025; 85652; 86140

== ENCOUNTER → 2024-04-19 | Outpatient (CLI) | payer MEDICARE, BC ==
[2024-04-19 08:07] LABS: African American GFR (CKD) >90 (>60 ml/min/1.73 sqM); Blood Urea Nitrogen 12 mg/dL (9-20); Non-African American GFR(CKD) >90 (>60 ml/min/1.73 sqM)
--- NOTE | 2024-04-19 09:24 | CT ---
EXAMINATION TYPE: CT brain wo/w con CT DLP: 2163.2 mGycm, Automated exposure control for dose reduction was used. DATE OF EXAM: 04/19/2024 8:55 AM COMPARISON: None. 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 One or more CT dose reduction strategies were utili zed during this examination. Coronal and sagittal reformats reviewed. FINDINGS: Extra-axial spaces: No abnormal extra-axial fluid collections. Ventricular system: Within normal limits Cerebral parenchyma: Age appropriate cerebral parenchymal volume. No acute intraparenchymal hemorrhag e or mass effect. The quiroga-white junction is well differentiated. Scattered hypoattenuating areas ar e seen within the periventricular white matter. No abnormal enhancement is seen after the administrat ion of intravenous contrast. Cerebellum: Unremarkable. Mass effect: No evidence of midline shift. Intracranial vasculature: Atherosclerotic calcifications of the intracranial vessels. Soft tissues: Normal. Calvarium/osseous structures: No depressed skull fracture. Paranasal sinuses and mastoid air cells: Clear. Visualized orbits: Orbital contents are intact. IMPRESSION: 1. No acute intracranial process and no evidence to suggest intracranial mass. 2. Nonspecific white matter changes, likely secondary to chronic small vessel ischemic disease. [facility], , 04/19/2024 9:21 AM
== END | disposition home or self-care (01) ==
LOC: RADCTMAIN 07:19
PROVIDERS: ATTEND Ophthalmology
DX: H49.21 Sixth [abducent] nerve palsy, right eye (principal); R20.0 Anesthesia of skin
CPT/HCPCS: 82565; 84520; 70470; 36415; Q9967

== ENCOUNTER → 2024-08-01 | Outpatient (CLI) | payer MEDICARE, BC ==
[2024-08-01 15:12] LABS: Basophils # (A) 0.06 X 10*3/uL (0.00-0.10); Basophils % (A) 0.8 %; Eosinophils # (A) 0.11 X 10*3/uL (0.04-0.35); Eosinophils % (A) 1.5 %; HCT 45.6 % (39.6-50.0); HGB 15.6 g/dL (13.0-17.0); Lymphocytes # (A) 1.65 X 10*3/uL (0.90-5.00); Lymphocytes % (A) 23.2 %; MCH 31.5 pg (27.0-32.0); MCHC 34.2 g/dL (32.0-37.0); MCV 91.9 FL (80.0-97.0); Mean Platelet Volume 9.6 FL (9.5-12.2); Monocytes # (A) 0.65 X 10*3/uL (0.20-1.00); Monocytes % (A) 9.1 %; NRBC Per 100 WBC 0 X 10*3/uL (0.00-0.01); Neutrophils # (A) 4.58 X 10*3/uL (1.80-7.70); Neutrophils % (A) 64.4 %; Platelet Count 304 X 10*3/uL (140-440); RBC 4.96 X 10*6/uL (4.40-5.60); WBC 7.12 X 10*3/uL (4.50-10.00)
[2024-08-01 15:29] LABS: Appearance,Urine Clear (Clear); Bilirubin,Urine Negative (Negative); Blood,Urine Negative (Negative); Color,Urine Yellow (Yellow); Ketones,Urine Negative (Negative); Nitrite,Urine Negative (Negative); Specific Gravity,Urine 1.015 (1.001-1.030); Urobilinogen,Urine 0.2 E.U./DL
[2024-08-01 15:35] LABS: ALT 45 U/L (10-49); AST 25 U/L (14-35); BUN/Creat Ratio 13.25 Ratio (12.00-20.00); Blood Urea Nitrogen 10.6 mg/dL (9.0-27.0); C Reactive Protein <0.30 mg/dL (0.00-0.80); Calcium 9.9 mg/dL (8.7-10.3); Carbon Dioxide 26.7 mmol/L (21.6-31.8); Chloride 95 mmol/L (96-109); Chol/HDL Ratio 4.36 Ratio; Glucose 126 mg/dL (70-110); LDL Cholesterol,Calculated 96.5 mg/dL (0.0-131.0); Potassium 4.5 mmol/L (3.5-5.5); Prostate Specific Antigen 0.74 ng/mL (0.000-6.500); Sodium 133 mmol/L (135-145)
[2024-08-01 16:08] LABS: Erythrocyte Sedimentation Rate 17 mm/Hr (0-20)
== END | disposition home or self-care (01) ==
LOC: LABWHC1 10:26
PROVIDERS: ATTEND Family Medicine
DX: I10 Essential (primary) hypertension (principal); E78.5 Hyperlipidemia, unspecified; N40.0 Benign prostatic hyperplasia without lower urinary tract symptoms; R51.9 Headache, unspecified
CPT/HCPCS: 36415; 80048; 80061; 81003; 83036; 84153; 84450; 84460; 85025; 85652; 86140